=== PATIENT | female | born 1990 | race Caucasian/White ===

== ENCOUNTER 2019-04-17 10:43 | Emergency (ER) | payer OTHER ==
[~2019-04-17] VITALS: Ht 170.2 cm; Wt 83.5 kg
[2019-04-17 10:51] VITALS: Ht 170.2 cm; Wt 83.5 kg
[2019-04-17 11:47] LABS: PLATELET COUNT 334 x10^3mcL (130-400); RED CELL DISTRIBUTION WIDTH 13.8 % (11.5-14.5)
[2019-04-17 11:48] LABS: BASOPHIL % 2.3 % (0-2)
[2019-04-17 11:57] LABS: CALCIUM 8.7 mg/dL (8.5-10.1); CARBON DIOXIDE 24.1 mmol/L (21-32); CHLORIDE SERUM 99 mmol/L (98-107); CREATININE SERUM 0.6 mg/dL (0.6-1.0); GFR1 > 60 mL/min; GLUCOSE SERUM 83 mg/dL (74-106); POTASSIUM SERUM 4.9 mmol/L (3.5-5.1); SODIUM SERUM 133 mmol/L (136-145)
[2019-04-17 12:02] LABS: ALBUMIN 3.6 g/dL (3.4-5.0); ALKALINE PHOSPHATASE 86 U/L (46-116); ALT/SGPT 12 U/L (14-59); AST/SGOT 35 U/L (15-37); BILIRUBIN TOTAL 0.57 mg/dL (0.20-1.00)
[2019-04-17 12:07] LABS: TOTAL PROTEIN, SERUM 9.1 g/dL (6.4-8.2)
[2019-04-17 13:20] VITALS: BP 132/76
== END 2019-04-17 13:20 | disposition home or self-care (01) ==
LOC: ED 10:43
PROVIDERS: Emergency Medicine
DX: O21.0 Mild hyperemesis gravidarum (principal); I10 Essential (primary) hypertension; Z3A.09 9 weeks gestation of pregnancy
CPT/HCPCS: J7030